=== PATIENT | male | born 1960 | race Caucasian/White ===

== ENCOUNTER → 2018-03-13 | Outpatient (CLI) | payer BC ==
[~2018-03-13] VITALS: Ht 180.3 cm; Wt 79.4 kg
[~2018-03-13] MED LIST: ELIQUIS5 MG PO; SIMVASTATIN40 MG PO
--- NOTE | ~2018-03-13 | PATH ---
[facility] [address] [place] [address] PATHOLOGY RPT PROCEDURE Name: JOSIEBRYAN Bravo Room #: REG [facility] Micaela.#: [id number] Admission: 03/13/18 Date of : 58 Discharge: Report #: [id number] Path Case #: [id number] [facility] Accession Number: [id number] . 01 Material submitted: . PART A: RANDOM COLON BIOPSIES R/O MICROSCOPIC COLITIS PART B: SIGMOID COLON POLYP X2 . 01 Clinical history: . Pre-OP DX: Rectal bleeding, diarrhea Post-OP DX: Colon polyps, internal hemorrhoids . 02 Diagnosis: A. Colonic mucosa "random colon biopsies R/O microscopic colitis": - Consistent with microscopic colitis with increased intraepithelial lymphocytes and increased lamina propria inflammation. - There is no evidence of atypia or malignancy. . B. Colonic mucosa "sigmoid colon polyps biopsies x 2": - Hyperplastic polyps. - There is no evidence of adenomatous change, high-grade dysplasia, or malignancy. (SHA:myesha; ) QMS/03/14/2018 . 02 Electronically signed: . Mauro Mondragon MD, Pathologist NPI- [id number] . 01 Gross description: . A. Received in formalin labeled "Bryan Galindo, random colon biopsies, rule out microscopic colitis," are multiple segments of [place] soft tissue measuring 2.1 x 0.5 x 0.2 cm in aggregate dimensions. The specimen is filtered and entirely submitted in cassette A1. . B. Received in formalin labeled "Bryan Galindo, sigmoid colon polyps," and additionally labeled on the requisition as "polyp," are 2 segments of [place] soft tissue measuring 0.9 x 0.2 x 0.2 cm in aggregate dimensions and ranging from 0.4 to 0.5 cm in maximum dimension. The specimen is submitted entirely in cassette B1. (TSD; 03/13/2018) TOB/TOB . 02 Pathologist provided ICD-10: K52.839, K63.5 . 02 CPT . [address] [address] PATHOLOGY RPT PROCEDURE Name: BRYAN GALINDO S [id number] Admission: 03/13/18 Date of : 58 Discharge: Report #: [id number] Path Case #: [id number], [id number] Specimen Comment: A courtesy copy of this report has been sent to Specimen Comment: [phone], . Specimen Comment: Report sent to / DR KAPOOR Specimen Comment: A duplicate report has been generated due to demographic updates. Performed at: [address], [place] [id number] MD Arnoldo Potts MD Phone: [phone] Performed at: [address] [id number] MD Purvi Matamoros MD Phone: [phone]
== END | disposition home or self-care (01) ==
LOC: GI 12:53
DX: K52.839 Microscopic colitis, unspecified (principal); K63.5 Polyp of colon; K64.8 Other hemorrhoids; E78.5 Hyperlipidemia, unspecified; Z83.79 Family history of other diseases of the digestive system; Z87.442 Personal history of urinary calculi; Z86.718 Personal history of other venous thrombosis and embolism; Z79.01 Long term (current) use of anticoagulants
CPT/HCPCS: 62110; 62900